=== PATIENT | male | born 1965 | race Caucasian/White ===

== ENCOUNTER 2018-04-05 12:37 | Emergency (ER) | payer OTHER ==
[~2018-04-05] VITALS: Ht 172.7 cm; Wt 113.4 kg
[~2018-04-05 12:37] MED LIST: DIOVAN HCT 1601 EAC1; FENOFIBRATE54 MG; GLUCOPHAGE XR750 MG; NEURONTIN600 MG
[2018-04-05] MEDS ORDERED: PERCOCET 5-3251 EACH PO (12:49)
[2018-04-05] MEDS ORDERED: NEURONTIN800 MG PO (12:50)
[2018-04-05] MEDS ORDERED: OSEL75CA PO (16:16)
[2018-04-05] MEDS ORDERED: TUSSI PRES-B L120 M1 PO (16:16)
[2018-04-05] MEDS ORDERED: PRILOSEC OTC20 MG PO (16:18)
== END 2018-04-05 16:24 | disposition home or self-care (01) ==
LOC: ER 12:37
DX: J09.X2 Influenza due to identified novel influenza A virus with other respiratory manifestations (principal); B34.9 Viral infection, unspecified

== ENCOUNTER 2021-03-23 05:57 | Emergency (ER) | payer OTHER ==
[~2021-03-23] VITALS: Ht 172.7 cm; Wt 104.3 kg
[~2021-03-23 05:57] MED LIST changes: +NEURONTIN800 MG PO; +OSEL75CA PO; +PERCOCET 5-3251 EACH PO; +PRILOSEC OTC20 MG PO; +TUSSI PRES-B L120 M1 PO
[2021-03-23] MEDS ORDERED: LEVOTHYROXINE25 MCG (06:03)
== END 2021-03-23 11:55 | disposition home or self-care (01) ==
LOC: ER 05:57
DX: N23 Unspecified renal colic (principal)

== ENCOUNTER → 2021-12-08 | Emergency (ER) | payer OTHER | END | disposition left against medical advice (07) | LOC: ER 06:36 | DX: Z53.21 Procedure and treatment not carried out due to patient leaving prior to being seen by health care provider (principal) ==

== ENCOUNTER 2023-02-22 17:46 | Emergency (ER) | payer OTHER ==
[~2023-02-22] VITALS: Ht 167.6 cm; Wt 81.6 kg
[~2023-02-22 17:46] MED LIST changes: +AVALIDE 300-121 EACH; +LEVOTHYROXINE25 MCG
[2023-02-22] MEDS ORDERED: GLIMEPIRIDE2 MG (18:17)
[2023-02-22 19:17] LABS: HEMATOCRIT 47.3 % (39.0-48.0); HEMOGLOBIN 15.9 g/dL (13-16.00); MEAN CELL VOLUME 85.7 fL (80.0-100.00); MEAN CORPUSCULAR HEMOGLOBIN 28.8 pg (27.00-32.0); MEAN CORPUSCULAR HGB CONC 33.7 g/dl (32.0-36.0); PLATELET COUNT 346 K/uL (150-450); RED BLOOD COUNT 5.52 M/uL (4.00-6.00); RED CELL DISTRIBUTION WIDTH 13.2 % (11.5-14.5)
== END 2023-02-22 20:55 | disposition home or self-care (01) ==
LOC: ER 17:46
PROVIDERS: General Practice
DX: J06.9 Acute upper respiratory infection, unspecified (principal); Z20.822 Contact with and (suspected) exposure to COVID-19; E11.9 Type 2 diabetes mellitus without complications; Z79.84 Long term (current) use of oral hypoglycemic drugs; I10 Essential (primary) hypertension